=== PATIENT | female | born 2000 | race Caucasian/White ===

== ENCOUNTER 2020-08-27 16:20 | Emergency (ER) | payer BC ==
[2020-08-27 16:28] VITALS: BP 114/72; PULSE 87; TEMP 98.9; BMI 21.2
[2020-08-27] MEDS ORDERED: SODIUM CHLORIDE 0.9% 1000 ML INFUS.BAG IV ONE (16:46)
[2020-08-27 17:01] LABS: BASO % 0.4 % (0-2.0); EOS % 0.5 % (0-4.5); HEMOGLOBIN 12.8 GM/dl (10.7-15.3); LYMPH % 23.8 % (8-40); MCHC 33.8 g/dl (32.0-36.0); MEAN CELL VOLUME 82.8 fl (80-96); MEAN PLT VOLUME 7.3 fl (7.5-11.1); MONO % 5.4 % (3.8-10.2); NEUT % 69.9 % (42.8-82.8); PLATELET COUNT 248 K/MM3 (134-434); RBC 4.59 M/mm3 (3.60-5.2); RDW 11.4 % (11.6-15.6); WHITE BLOOD COUNT 7.7 K/mm3 (4.0-10.8)
[2020-08-27 17:06] LABS: HCG,QUALITATIVE URINE Negative
[2020-08-27 17:19] LABS: ALBUMIN 3.7 g/dl (3.4-5.0); BILIRUBIN,TOTAL 0.9 mg/dl (0.2-1); CALCIUM 8.9 mg/dl (8.5-10); CREATININE 0.7 mg/dl (0.55-1.3); TOT PROT 7.1 g/dl (6.4-8.2)
[2020-08-27 17:22] LABS: EPITHELIAL CELLS FEW /hpf
[2020-08-27 22:19] LABS: COCAINE, UR NEGATIVE ng/ml (CUTOFF=300); METHADONE, UR NEGATIVE ng/ml (CUTOFF=300); OPIATES, URI NEGATIVE ng/ml (CUTOFF=300); PHENCYCLIDINE,URINE NEGATIVE ng/ml (CUTOFF=25); URINE AMPHETAMINES NEGATIVE ng/ml (CUTOFF=500); URINE BARBITURATES NEGATIVE ng/ml (CUTOFF=200); URINE BENZODIAZEPINES NEGATIVE ng/ml (CUTOFF=200)
== END 2020-08-27 17:55 | disposition home or self-care (01) ==
LOC: FER 16:20
DX: F18.10 Inhalant abuse, uncomplicated (principal)
CPT/HCPCS: 36415; 80053; 80307; 81003; 81015; 84703; 85025; 99284-25